=== PATIENT | male | born 1980 | race Caucasian/White ===

== ENCOUNTER 2024-07-03 01:58 | Emergency (ER) | payer BC, SELFPAY ==
[2024-07-03 02:03] VITALS: BP 157/102; PULSE 61; TEMP 36.8; O2SAT 99; BMI 26.2
[2024-07-03] MEDS: MORPHINE SULFATE 4 MG/ML VIAL IV ×2 (02:15→02:37)
--- NOTE | 2024-07-03 02:16 | ED.GENADUL1 ---
HPI HPI - General Adult General Chief complaint: Abdominal Pain Stated complaint: FLANK PAIN Time Seen by Provider: 07/03/24 02:13 Source: patient Mode of arrival: walk-in Limitations: no limitations History of Present Illness HPI narrative: 43-year-old male presents for right flank pain. It started at 1230, almost 2 hours ago. No injury. He has never had a kidney stone. He vomited once. No gross hematuria. He does not have any pain on the left side. Related Data Previous Rx's ?Medication ?Instructions ?Recorded hydrocodone 5 mg-acetaminophen 325 1 tab PO Q6H PRN pain 5 days #20 07/03/24 mg tablet tabs ondansetron 4 mg disintegrating 4 mg PO Q6H PRN nausea and 07/03/24 tablet vomiting #20 tabs tamsulosin 0.4 mg capsule (Flomax) 0.4 mg PO DAILY #7 caps 07/03/24 Allergies Allergy/AdvReac Type Severity Reaction Status Date / Time metoclopramide (From Reglan) Allergy Severe Agitated Verified 07/03/24 02:09 milk Allergy Intermediate Hives Verified 07/03/24 02:09 Opioid HPI Opioid Management Most Recent Opioid Data: No Data to Display Review of Systems ROS Narrative A ten point review of systems is negative except as noted above. PFSH PFSH Social History Little interest or pleasure in doing things: not at all Feeling down, depressed, or hopeless: not at all Exam Narrative Exam Narrative: Nurses note and vital signs reviewed and patient is not hypoxic. General: The patient appears uncomfortable and is frequently moving about on the cart Skin: Warm, dry, no pallor noted. There is no rash noted. Head: Normocephalic, atraumatic Eye: Normal conjunctiva, no drainage Ears, Nose, Mouth, and Throat: oral mucosa is moist. Nares patent. Cardiovascular: Regular Rate and Rhythm Respiratory: Patient is in no distress, no accessory muscle use, lungs are clear to auscultation, no wheezing, rales or rhonchi Back: non-tender, no CVA tenderness bilaterally to percussion. GI: Soft and nontender Musculoskeletal: No joint swelling Neurological: A&O, normal speech Psychiatric: Cooperative Constitutional Vital Signs, click to edit/add: Last Vital Signs Temp 98.2 F 07/03/24 02:03 Pulse 61 07/03/24 02:03 Resp 18 07/03/24 02:03 BP 157/102 H 07/03/24 02:03 Pulse Ox 99 07/03/24 02:17 O2 Del Method Room Air 07/03/24 02:17 Course Vital Signs Vital signs: Vital Signs Temperature 98.2 F 07/03/24 02:03 Pulse Rate 61 07/03/24 02:03 Respiratory Rate 18 07/03/24 02:03 Blood Pressure 157/102 H 07/03/24 02:03 Pulse Oximetry 99 07/03/24 02:03 Oxygen Delivery Method Room Air 07/03/24 02:03 Temperature 98.2 F 07/03/24 02:03 Pulse Rate 61 07/03/24 02:03 Respiratory Rate 18 07/03/24 02:03 Blood Pressure 157/102 H 07/03/24 02:03 Pulse Oximetry 99 07/03/24 02:17 Oxygen Delivery Method Room Air 07/03/24 02:17 Medical Decision Making MDM Narrative Medical decision making narrative: 4 mm distal ureteral stone is identified. He was given morphine and then Toradol and then Dilaudid and his pain seems to have resolved. He is feeling much improved and is able to be discharged home with prescriptions for hydrocodone, Zofran, and Flomax. Follow-up with urology. Treatment diagnosis and follow-up were discussed with the patient Differential Diagnosis Differential Diagnosis: Kidney stone, muscle strain Lab Data Lab results reviewed: Yes I reviewed the patient's lab results Labs: Lab Results 07/03/24 Range/Units 02:10 WBC 12.1 H (4.0-11.0) 10^3/uL RBC 4.81 (4.70-6.10) 10^6/uL Hgb 14.2 (14.0-18.0) g/dL Hct 42.0 (42.0-54.0) % MCV 87.3 (80.0-94.0) fL MCH 29.5 (25.9-34.0) pg MCHC 33.8 (29.9-35.2) g/dL RDW 12.3 (11.0-15.0) % Plt Count 374 (150-450) 10^3/uL MPV 8.9 L (9.5-13.5) fL Neut % (Auto) 68.7 (43.0-75.0) % Lymph % (Auto) 22.2 (20.5-60.0) % Ocean % (Auto) 7.2 (1.7-12.0) % Eos % (Auto) 1.0 (0.9-7.0) % Baso % (Auto) 0.5 (0.2-2.0) % Neut # (Auto) 8.4 H (1.4-6.5) 10^3/uL Lymph # (Auto) 2.7 (1.2-3.8) 10^3/uL Ocean # (Auto) 0.9 H (0.3-0.8) 10^3/uL Eos # (Auto) 0.1 (0.0-0.7) 10^3/uL Baso # (Auto) 0.1 (0.0-0.1) 10^3/uL Abs Immat Gran (auto) 0.05 H (0.00-0.03) 10^3/uL Imm/Tot Granulo (auto) 0.4 (0.0-0.5) % Sodium 142 (136-145) mmol/L Potassium 3.9 (3.5-5.1) mmol/L Chloride 104 (98-107) mmol/L Carbon Dioxide 29.3 (21.0-32.0) mmol/L Anion Gap 12.6 BUN 19.0 H (7.0-18.0) mg/dL Creatinine 1.57 H (0.70-1.30) mg/dL Est GFR ( Amer) 59 L (>=60 mL/min/1.73m^2) Est GFR (Non-Af Amer) 48 L (>=60 mL/min/1.73m^2) BUN/Creatinine Ratio 12.1 Glucose 144 H (74-106) mg/dL Calcium 8.8 (8.5-10.1) mg/dL Imaging Data CT scan - abdomen: Radiologist's impression: Right hydronephrosis and hydroureter due to a 4 mm stone within the distal right ureter Discharge Plan Discharge Chief Complaint: Abdominal Pain Clinical Impression: Kidney stone Patient Disposition: Home, Self-Care Time of Disposition Decision: 03:43 Condition: Good Mode of Transportation: Private Vehicle Prescriptions / Home Meds: New hydrocodone-acetaminophen 5-325 mg tablet 1 tab PO Q6H PRN (Reason: pain) 5 Days Qty: 20 0RF tamsulosin [Flomax] 0.4 mg capsule 0.4 mg PO DAILY Qty: 7 0RF ondansetron 4 mg tablet,disintegrating 4 mg PO Q6H PRN (Reason: nausea and vomiting) Qty: 20 0RF Print Language: Sri Lankan Instructions: Kidney Stones (ED), How to Strain Your Urine (ED) Additional Instructions: Follow-up with the urologist, strain your urine and take the stone to the urologist. You received morphine, Toradol, Dilaudid Referrals: Physician,Non-Staff, [Primary Care Provider] - 1 week Yuriy Lira MD [Physician] - 1 week
[2024-07-03 02:17] VITALS: O2SAT 99
[2024-07-03 02:17] LABS: Basophils Absolute Auto 0.1 10^3/uL (0.0-0.1); Basophils Percent Auto 0.5 % (0.2-2.0); Eosinophils Absolute Auto 0.1 10^3/uL (0.0-0.7); Hemoglobin 14.2 g/dL (14.0-18.0); Immature Granulocytes Abs Auto 0.05 10^3/uL (0.00-0.03); Immature Granulocytes Pct Auto 0.4 % (0.0-0.5); Lymphocytes Absolute Auto 2.7 10^3/uL (1.2-3.8); Lymphocytes Percent Auto 22.2 % (20.5-60.0); Mean Corpuscular HGB Conc 33.8 g/dL (29.9-35.2); Mean Corpuscular Hemoglobin 29.5 pg (25.9-34.0); Mean Corpuscular Volume 87.3 fL (80.0-94.0); Mean Platelet Volume 8.9 fL (9.5-13.5); Monocytes Absolute Auto 0.9 10^3/uL (0.3-0.8); Monocytes Percent Auto 7.2 % (1.7-12.0); Neutrophils Absolute Auto 8.4 10^3/uL (1.4-6.5); Neutrophils Percent Auto 68.7 % (43.0-75.0); Platelet Count 374 10^3/uL (150-450); Red Blood Count 4.81 10^6/uL (4.70-6.10); Red Cell Distribution Width 12.3 % (11.0-15.0); White Blood Count 12.1 10^3/uL (4.0-11.0)
[2024-07-03 02:27] LABS: Anion Gap 12.6; BUN Creatinine Ratio 12.1; Calcium 8.8 mg/dL (8.5-10.1); Carbon Dioxide 29.3 mmol/L (21.0-32.0); Chloride 104 mmol/L (98-107); Estimated GFR (African America 59 (>=60 mL/min/1.73m^2); Estimated GFR (Non-African Ame 48 (>=60 mL/min/1.73m^2); Glucose 144 mg/dL (74-106); Potassium 3.9 mmol/L (3.5-5.1); Sodium 142 mmol/L (136-145)
[2024-07-03] MEDS: ONDANSETRON PF 4 MG/2 ML VIAL IV (02:34)
[2024-07-03] MEDS: KETOROLAC TROMETHAMINE 30 MG/ML VIAL IVP (02:55)
[2024-07-03] MEDS: HYDROMORPHONE HCL 1 MG/ML CARTRIDGE IV (03:25)
[2024-07-03 03:53] VITALS: BP 139/89; PULSE 80; O2SAT 98
== END 2024-07-03 03:54 | disposition home or self-care (01) ==
PROVIDERS: Emergency Provider Emergency Medicine
DX: N20.0 Calculus of kidney (principal); R10.31 Right lower quadrant pain; N20.1 Calculus of ureter; N13.30 Unspecified hydronephrosis
CPT/HCPCS: 36415; 74176; 80048; 81001; 85025; 96374; 96375; 99284; J1171; J1885; J2270; J2405

== ENCOUNTER 2024-07-22 03:28 | Emergency (ER) | payer BC, SELFPAY ==
[2024-07-22 03:31] VITALS: BP 174/100; PULSE 64; TEMP 36.9; O2SAT 98; BMI 25.6
--- OUTSIDE RECORDS SUMMARY | 2024-07-22 03:34 | XMS_ITS | CCD ---
Author Organization [facility] Informat ion Partnership [facility] Care Team Providers Care Diamond Die Maker Name Role Phone DR CAROLYN GARCIA Admitting Unavailable RADHA, DR LEON Attending Unavailable [facility] [place], DR [place] Primary Care Unavailable DALIA COTA Consulting Unavailable Allergies Allergy Classification Reported Allergen(s) Allergy Type Date of Onset Reaction(s) Facility (1 source) Iothalamate Drug Allergy 06-01-2021 [facility] Repository Problems Active Problems Problem Classification Problem Date Documented Da te Episodic/Chronic Anxiety disorders (1 source) Post-traumatic stress disorder, unspecified; Translations: [POST-TRAUMATIC STRESS DISORDER UNS] Onset: 06-03-2021 Chronic Mood disorders (1 source) Unspecified mood [affective] disorder; Translations: [UNSPECIFIED MOOD AFFECTIVE DISORDER] Onset: 06-03-2021 Chronic Past or Other Problems Problem Classification Problem Date Documented Da te Episodic/Chronic Other aftercare (1 source) Other fci (current) drug therapy; Translations: [OTH [facility] CURRENT DRUG THERAPY] Onset: 06-03-2021 Episodic Screening and history of mental health and substance abuse codes (1 source) Personal history of nicotine dependence; Translations: [PERSONAL HISTORY OF NICOTINE DEPEND] Onset: 06-03-2021 Episodic Suicide and intentional self-inflicted injury (3 sources) Suicidal ideations; Translations: [SUICIDAL IDEATIONS] Onset: 06-01-2021 Episodic Encounters Encounter Date Encounter Type Care Provider Facility Start: 06-01-2021 End: 06-01-[address] CAROLYN GARCIA Facility:[facility] Payers Date Payer Category Payer Unknown [id number] 1959 Unknown [id number] Summary Purpose Family History No Family History Records Found Advance Directives No Advanced Directives Records Found Additional Source Comments (unrecognized sect ion and content) No Status Records Found INFORMATION SOURCE (unrecogn ized section and content) DATE CREATED AUTHOR 05/23/2022 [facility] FOR RECORDS PERTAINING TO PATIENTS WHO ARE OR HAVE BEEN ENROLLED IN A CHEMICAL DEPENDENCY/SUBSTANCEABUSE PROGRAM, SOME INFORMATION MAY BE OMITTED. This clinical summary was aggregated from multiple sources. Caution should be exercised in using it in the provision of clinical care. This summary normalizes information from multiple sources, and as a consequence, information in this document may materially change the coding, format and clinical context of patient data. In addition, data may be omitted in some cases. CLINICAL DECISIONS SHOULD BE BASED ON THE PRIMARY CLINICAL RECORDS. [facility] [employer] [facility]. provides no warranty or guarantee of the accuracy or completeness of information in this document.
--- NOTE | 2024-07-22 03:48 | ED.GENADUL1 ---
HPI HPI - General Adult General Chief complaint: Abdominal Pain Stated complaint: POSSIBLE KIDNEY STONE W/VOMITING Time Seen by Provider: 07/22/24 03:46 Source: patient Mode of arrival: walk-in Limitations: no limitations History of Present Illness HPI narrative: Patient is a 43-year-old male who is presenting to the ER today with chief complaint of right lower back right flank and right lower quadrant pain. Patient was here on July 03, and patient was seen evaluated around 2:00 AM. Patient had Urine, lab work, and CT performed. Patient was diagnosed with a 4 mm stone at that time to the distal ureter. Patient has not made an appointment with urologist. 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 Patient was in [place] for 1 week for training and then last week was off on vacation and patient has not followed up with urology yet. Patient has been told multiple times in the past his blood pressure is high, he has no PCP. Patient has no headache, chest pain or shortness of breath. Patient has had a few episodes of nausea and vomiting. Patient states he was hearing a urine strainer for 1 week after he left and then stop using the urine strainer. Patient also gave me a 3 to 5-minute information with Sangita RN at bedside is how he processes pain medication quickly, he is not normal, and states he is never felt a morphine crash before. Last time he was here he knew exactly that he got 2 doses of morphine, 1 dose of Dilaudid until help with his pain. Patient is very descriptive with the medication he received last ER visit. Patient lives at home with his ex-. Patient drove to the ER approximately 15 to 20 minutes away, patient lives in [place]. Patient denies any pain to penis and testicles. All systems are negative except as noted/marked. All systems reviewed and otherwise negative. Nurses note and vital signs reviewed and patient is not hypoxic. General: The patient appears in mild distress secondary to pain. Patient is resting uncomfortably on cart. Patient is not toxic, lethargic, or listless Skin: Warm, dry, no pallor noted. There is no rash noted. No petechiae, purpura. Head: Normocephalic, atraumatic Eye: Normal conjunctiva, no drainage, EOMI. PERRL Ears, Nose, Mouth, and Throat: oral mucosa is moist. Nares patent. Mouth without vesicles. Cardiovascular: Regular Rate and Rhythm, no murmur, gallop, rub Respiratory: Patient is in no distress, no accessory muscle use, lungs are clear to auscultation, no wheezing, rales or rhonchi Back: Moderate right CVA tenderness to palpation, mild to moderate right flank tenderness to palpation, minimal right lower quadrant tenderness to palpation, no left CVA tenderness to percussion. No CT LS midline pain GI: no tenderness to palpation, no masses appreciated. No rebound, guarding, or rigidity noted. No distention Musculoskeletal: Patient has full range of motion of all of the extremities, no motor, sensory, or focal neurological deficits Neurological: A&O x4, normal speech Psychiatric: Cooperative Related Data Previous Rx's ?Medication ?Instructions ?Recorded hydrocodone 5 mg-acetaminophen 325 1 tab PO Q6H PRN pain 5 days #20 07/03/24 mg tablet tabs hydrocodone 5 mg-acetaminophen 325 1 tab PO Q4H PRN pain #8 tabs 07/22/24 mg tablet ketorolac 10 mg tablet 10 mg PO Q8H PRN pain 1 day #10 07/22/24 tabs ondansetron 4 mg disintegrating 4 mg PO Q4H PRN nausea and 07/22/24 tablet vomiting 3 days #6 tabs tamsulosin 0.4 mg capsule (Flomax) 0.4 mg PO DAILY 7 days #7 caps 07/22/24 Allergies Allergy/AdvReac Type Severity Reaction Status Date / Time metoclopramide (From Reglan) Allergy Severe Agitated Verified 07/22/24 03:36 milk Allergy Intermediate Hives Verified 07/22/24 03:36 Opioid HPI Opioid Management Most Recent Opioid Data: Last Pain Scale 8 07/22/24 04:35 07/22/24 Last JUL Pain Assessment 07/22/24 04:35 PFSH PFSH Social History Little interest or pleasure in doing things: not at all Feeling down, depressed, or hopeless: not at all Exam Constitutional Vital Signs, click to edit/add: Last Vital Signs Temp 98.4 F 07/22/24 03:31 Pulse 64 07/22/24 03:31 Resp 16 07/22/24 04:51 BP 145/87 H 07/22/24 04:51 Pulse Ox 98 07/22/24 04:51 O2 Del Method Room Air 07/22/24 04:51 Course Vital Signs Vital signs: Vital Signs Temperature 98.4 F 07/22/24 03:31 Pulse Rate 64 07/22/24 03:31 Respiratory Rate 18 07/22/24 03:31 Blood Pressure 174/100 H 07/22/24 03:31 Pulse Oximetry 98 07/22/24 03:31 Oxygen Delivery Method Room Air 07/22/24 03:31 Temperature 98.4 F 07/22/24 03:31 Pulse Rate 64 07/22/24 03:31 Respiratory Rate 16 07/22/24 04:51 Blood Pressure 145/87 H 07/22/24 04:51 Pulse Oximetry 98 07/22/24 04:51 Oxygen Delivery Method Room Air 07/22/24 04:51 Medical Decision Making MDM Narrative Medical decision making narrative: Patient gave me a 3 to 5-minute very descriptive information about how his body does not process medication like normal people. Last time he was here is very descriptive and the 2 doses of morphine and Dilaudid that he received before the edge was taken out the pain. Patient has not followed up with urologist. Patient is aware that he does have several kidney stones in both kidneys. Patient has had no history of kidney stones up until last month in July 03. Patient has no PCP, no urologist that he called. Patient told me how he had a colonoscopy several years ago and that he was awake during the entire colonoscopy and remembers and felt everything and never went into the twilight zone 0530 patient's urine showed small amount of blood, no red blood cells. Patient kidney function is improved compared to July 03. Patient has no elevated white blood cell count. Patient blood pressure and pain both improved. KUB shows no obvious x-ray, official radiology report will not be done for several more hours, radiology is 3 to [address] and x-ray reads today. Patient was discharged with symptomatic treatment for renal colic and possible kidney stone. Patient understands the importance of following up with PCP and urologist. Patient had his ex- pick him up, no question at discharge. Patient discharged blood pressure is 132/86. Patient states this is normally where his blood pressure is. Patient is pain-free. Patient is joking with his ex- who is picking him up. Ex- stated that he should have called urologist and not going on his work trip for vacation. Ex- is joking with him that yes he should be getting family doctor, urologist, and doing the things that he should be doing. Patient ex- is still his emergency contact and helps take care of him. Patient lives with his ex-. She will be driving home. Patient pain-free nonsurgical abdomen at discharge. Education and kidney stones on the bedside. Patient has a small amount of blood in his urine with 0-2 red blood cells, education the patient most likely is a 10 to 15% chance of having kidney stone at this time, but he does have possibility of future stones with multiple bilateral renal calculi is noted from his CAT scan from [facility] 2019 for which a copy was given to him. Patient had education of blood pressure, it was given from patient at bedside and on discharge paperwork as well. Patient states he has been told multiple times in his lifetime that he has elevated blood pressure and states I am always told that . He is never done any preventative medication, measures, additional testing to help prevent cardiovascular risk. Lab Data Labs: Lab Results 07/22/24 07/22/24 Range/Units 03:38 04:30 WBC 10.0 (4.0-11.0) 10^3/uL RBC 4.69 L (4.70-6.10) 10^6/uL Hgb 13.8 L (14.0-18.0) g/dL Hct 41.2 L (42.0-54.0) % MCV 87.8 (80.0-94.0) fL MCH 29.4 (25.9-34.0) pg MCHC 33.5 (29.9-35.2) g/dL RDW 12.5 (11.0-15.0) % Plt Count 350 (150-450) 10^3/uL MPV 8.8 L (9.5-13.5) fL Neut % (Auto) 68.4 (43.0-75.0) % Lymph % (Auto) 20.5 (20.5-60.0) % Brule % (Auto) 7.4 (1.7-12.0) % Eos % (Auto) 2.2 (0.9-7.0) % Baso % (Auto) 0.6 (0.2-2.0) % Neut # (Auto) 6.8 H (1.4-6.5) 10^3/uL Lymph # (Auto) 2.1 (1.2-3.8) 10^3/uL Brule # (Auto) 0.7 (0.3-0.8) 10^3/uL Eos # (Auto) 0.2 (0.0-0.7) 10^3/uL Baso # (Auto) 0.1 (0.0-0.1) 10^3/uL Abs Immat Gran (auto) 0.09 H (0.00-0.03) 10^3/uL Imm/Tot Granulo (auto) 0.9 H (0.0-0.5) % Sodium 141 (136-145) mmol/L Potassium 3.7 (3.5-5.1) mmol/L Chloride 103 (98-107) mmol/L Carbon Dioxide 27.6 (21.0-32.0) mmol/L Anion Gap 14.1 BUN 16.0 (7.0-18.0) mg/dL Creatinine 1.43 H (0.70-1.30) mg/dL Est GFR ( Amer) >60 (>=60 mL/min/1.73m^2) Est GFR (Non-Af Amer) 54 L (>=60 mL/min/1.73m^2) BUN/Creatinine Ratio 11.2 Glucose 130 H (74-106) mg/dL Calcium 8.9 (8.5-10.1) mg/dL Total Bilirubin 0.4 (0.2-1.0) mg/dL AST 44 H (15-37) U/L ALT 76 H (16-63) U/L Alkaline Phosphatase 78 (46-116) U/L Total Protein 7.6 (6.4-8.2) g/dL Albumin 3.5 (3.4-5.0) g/dL Globulin 4.1 g/dL Albumin/Globulin Ratio 0.9 Lipase 22.0 (16.0-77.0) U/L Urine Color Lt. yellow (YELLOW) Urine Clarity Clear (CLEAR) Urine pH 6.0 (5.0-9.0) Ur Specific Harrison 1.020 (1.005-1.025) Urine Protein Negative (NEG/TRACE) mg/dL Urine Glucose (UA) Negative (NEGATIVE) mg/dL Urine Ketones Negative (NEGATIVE) mg/dL Urine Occult Blood Small A (NEGATIVE) Urine Nitrite Negative (NEGATIVE) Urine Bilirubin Negative (NEGATIVE) Urine Urobilinogen 0.2 (0.2-1.0) EU/dL Ur Leukocyte Esterase Negative (NEGATIVE) Urine RBC 0-2 (0-2) #/HPF Urine WBC 0-2 A (NONE SEEN) #/HPF Ur Squamous Epith Cells Rare (NONE/RARE) #/LPF Urine Crystals None seen (None Seen) #/HPF Urine Bacteria None seen (NONE SEEN) #/HPF Urine Casts None seen (NONE SEEN) #/LPF Urine Mucus None seen (NONE SEEN) Ur Culture Indicated? No Discharge Plan Discharge Stand Alone Forms: Work/School Release Chief Complaint: Abdominal Pain Clinical Impression: Kidney stone, Renal colic on right side, Hypertension, Medically noncompliant Patient Disposition: Home, Self-Care Time of Disposition Decision: 05:25 Condition: Fair Prescriptions / Home Meds: New ketorolac 10 mg tablet 10 mg PO Q8H PRN (Reason: pain) 1 Days Qty: 10 0RF tamsulosin [Flomax] 0.4 mg capsule 0.4 mg PO DAILY 7 Days Qty: 7 0RF ondansetron 4 mg tablet,disintegrating 4 mg PO Q4H PRN (Reason: nausea and vomiting) 3 Days Qty: 6 0RF hydrocodone-acetaminophen 5-325 mg tablet 1 tab PO Q4H PRN (Reason: pain) Qty: 8 0RF No Action hydrocodone-acetaminophen 5-325 mg tablet 1 tab PO Q6H PRN (Reason: pain) 5 Days Qty: 20 0RF Print Language: Kyrgyz Instructions: Renal Colic (ED), Hypertension (ED) Additional Instructions: Use urine strainers every time you urinate. Alternate Tylenol and either Motrin, Advil, or ibuprofen every 4 hours to help with pain. If you are having severe pain, substitute a [place] tablet instead of Tylenol. Do not take Tylenol and [place] at the same time, you may actually take too much Tylenol at 1 setting or in 1 day. Maximum Tylenol dose of Tylenol is 3000 mg a day. Maximum dose of either Motrin, Advil, or ibuprofen is 2400 mg a day. Follow-up with an established PCP and you also need to follow-up and establish urologist as well. You have asymptomatic hypertension in the emergency room today. Either go to a drugstore, pharmacy, or where she is to her or your doctors office to have your blood pressure checked intermittently. A better idea is to buy a blood pressure cuff at home that is appropriate size, the pharmacist can help make sure that you use size is appropriate. Take your blood pressure twice a day for the next 1 to 2 weeks. If your blood pressure is consistently elevated 130/80, follow-up with your PCP for medication changes or adjustment as indicated. If you are having any significant headache, severe chest pain or heaviness or tightness, shortness of breath, passing out, or any other acute symptoms, please return to the ER for further evaluation or if you have any other acute concerns. Referrals: Mino Borges MD [Physician] - 1 week Silviano Rosenbaum MD [Physician] - 1 week Physician,Non-Staff, [Primary Care Provider] - 1 week
[2024-07-22 03:54] LABS: Basophils Absolute Auto 0.1 10^3/uL (0.0-0.1); Basophils Percent Auto 0.6 % (0.2-2.0); Eosinophils Absolute Auto 0.2 10^3/uL (0.0-0.7); Eosinophils Percent Auto 2.2 % (0.9-7.0); Hematocrit 41.2 % (42.0-54.0); Hemoglobin 13.8 g/dL (14.0-18.0); Immature Granulocytes Abs Auto 0.09 10^3/uL (0.00-0.03); Immature Granulocytes Pct Auto 0.9 % (0.0-0.5); Lymphocytes Absolute Auto 2.1 10^3/uL (1.2-3.8); Lymphocytes Percent Auto 20.5 % (20.5-60.0); Mean Corpuscular HGB Conc 33.5 g/dL (29.9-35.2); Mean Corpuscular Hemoglobin 29.4 pg (25.9-34.0); Mean Corpuscular Volume 87.8 fL (80.0-94.0); Mean Platelet Volume 8.8 fL (9.5-13.5); Monocytes Absolute Auto 0.7 10^3/uL (0.3-0.8); Monocytes Percent Auto 7.4 % (1.7-12.0); Neutrophils Absolute Auto 6.8 10^3/uL (1.4-6.5); Neutrophils Percent Auto 68.4 % (43.0-75.0); Platelet Count 350 10^3/uL (150-450); Red Blood Count 4.69 10^6/uL (4.70-6.10); Red Cell Distribution Width 12.5 % (11.0-15.0)
[2024-07-22] MEDS: KETOROLAC TROMETHAMINE 30 MG/ML VIAL 15 MG IVP (04:02)
[2024-07-22] MEDS: 0.9 % SODIUM CHLORIDE 1,000 ML 999 ML IV (04:02)
[2024-07-22] MEDS: ONDANSETRON PF 4 MG/2 ML VIAL IV (04:03)
[2024-07-22 04:11] LABS: Alanine Aminotransferase 76 U/L (16-63); Albumin Globulin Ratio 0.9; Albumin Level 3.5 g/dL (3.4-5.0); Alkaline Phosphatase 78 U/L (46-116); Anion Gap 14.1; Aspartate Amino Transferase 44 U/L (15-37); BUN Creatinine Ratio 11.2; Bilirubin Total 0.4 mg/dL (0.2-1.0); Calcium 8.9 mg/dL (8.5-10.1); Carbon Dioxide 27.6 mmol/L (21.0-32.0); Chloride 103 mmol/L (98-107); Estimated GFR (African America >60 (>=60 mL/min/1.73m^2); Estimated GFR (Non-African Ame 54 (>=60 mL/min/1.73m^2); Globulin 4.1 g/dL; Glucose 130 mg/dL (74-106); Potassium 3.7 mmol/L (3.5-5.1); Sodium 141 mmol/L (136-145); Total Protein 7.6 g/dL (6.4-8.2)
[2024-07-22 04:19] VITALS: BP 159/101
[2024-07-22 04:26] VITALS: BP 132/86
[2024-07-22 04:35] LABS: Bilirubin Urine NEGATIVE (NEGATIVE); Blood Urine SMALL (NEGATIVE); Clarity Urine CLEAR (CLEAR); Color Urine LT. YELLOW (YELLOW); Glucose Urine UA NEGATIVE (NEGATIVE); Ketones Urine NEGATIVE (NEGATIVE); Leukocyte Esterase Urine NEGATIVE (NEGATIVE); Nitrite Urine NEGATIVE (NEGATIVE); Protein Urine NEGATIVE (NEG/TRACE); Urobilinogen Urine 0.2 EU/dL (0.2-1.0)
[2024-07-22] MEDS: HYDROMORPHONE HCL 1 MG/ML CARTRIDGE IV (04:35)
[2024-07-22 04:41] LABS: Bacteria Urine NONE SEEN #/HPF (NONE SEEN); Cast Seen? NONE SEEN #/LPF (NONE SEEN); Crystals Seen? None Seen #/HPF (None Seen); Mucus Urine NONE SEEN (NONE SEEN); RBC Urine 0-2 #/HPF (0-2); Squamous Epithelial Cell Urine RARE #/LPF (NONE/RARE); Urine Culture Indicated NO; WBC Urine 0-2 #/HPF (NONE SEEN)
[2024-07-22 04:51] VITALS: BP 145/87; O2SAT 98
--- NOTE | 2024-07-22 05:01 | PC.NURSE ---
Pt contacted his ex-. She will provide him with a ride home.
[2024-07-22 05:43] VITALS: BP 132/78; O2SAT 97
== END 2024-07-22 05:43 | disposition home or self-care (01) ==
PROVIDERS: Emergency Provider Emergency Medicine
DX: N20.0 Calculus of kidney (principal); I10 Essential (primary) hypertension; Z91.199 Patient's noncompliance with other medical treatment and regimen due to unspecified reason
CPT/HCPCS: 36415; 74018; 80053; 81001; 83690; 85025; 96361; 96374; 96375; 99284; J1171; J1885; J2405